=== PATIENT | male | born 1960 | race Hispanic/Latino ===

== ENCOUNTER → 2024-04-15 | Outpatient (CLI) | payer OTHER ==
--- NOTE | 2024-04-15 10:52 | HMCIMG ---
US ABDOMINAL COMPLETE HISTORY: Benign neoplasm COMPARISON: None TECHNIQUE: Multiple transverse and longitudinal ultrasound images of the abdomen were obtained. FINDINGS: Abdominal aorta and inferior vena cava are unremarkable. The visualized portion of the pancreas is within normal limits. Liver measured 4.4 cm. No gallstone is seen. Common duct measures 3 mm. No evidence of gallbladder wall thickening is seen. Both kidneys are seen. Right kidney measures 8.6 x 4.9 x 5.2 cm. Left kidney measures 10.8 x 4.2 x 4.6 cm. No hydronephrosis is seen of the both kidneys. The spleen is grossly unremarkable. IMPRESSION: 1. No gallstone or ductal dilatation is seen. 2. No hydronephrosis is seen.
== END | disposition home or self-care (01) ==
LOC: RAH 09:33 → EEVIPCON 10:00
PROVIDERS: ATTEND Family Medicine
DX: Z86.018 Personal history of other benign neoplasm (principal)
CPT/HCPCS: 76700

== ENCOUNTER → 2024-05-14 | Outpatient (CLI) | payer OTHER ==
--- NOTE | 2024-05-14 15:40 | HMCIMG ---
CT NONCONTRAST CHEST Comparison Study: none History: Personal history of other benign neoplasm Technique: Helical CT of the chest without IV contrast at 5 mm collimation. Coronal and sagittal reformations also done. CT Dose Index (CTDI): 2.38 mGy Dose Length Product (DLP): 94.8 total mGy-cm Findings: The airway is intact. The trachea and major bronchi are unremarkable. The chest exam shows no pulmonary nodules or masses. No significant pulmonary parenchymal abnormalities are noted. No pulmonary infiltrates or mass lesions are seen. No pleural effusions are identified. There is no pneumothorax. There is no evidence of pneumomediastinum. The nonenhanced exam of the candis and mediastinum is unremarkable. No evidence of hilar enlargement is seen. The aorta shows no aneurysmal dilatation or significant atheromatous calcification. No significant brachiocephalic vascular abnormalities are seen. The heart is unremarkable. It is not enlarged. No significant coronary arterial calcifications are seen. There is no pericardial effusion. The rib cage appears unremarkable. The soft tissues of the chest wall are unremarkable. The dorsal spine shows no significant abnormalities. IMPRESSION: NORMAL CT OF THE CHEST WITHOUT CONTRAST. This study was performed using dose reduction techniques to include automated exposure control and/or adjustment of the mA and/or kV according to patient size.
== END | disposition home or self-care (01) ==
LOC: RAH 14:40
PROVIDERS: ATTEND Family Medicine
DX: I10 Essential (primary) hypertension (principal); F32.A Depression, unspecified; Z86.018 Personal history of other benign neoplasm
CPT/HCPCS: 71250